=== PATIENT | female | born 1980 | race Caucasian/White ===

== ENCOUNTER 2018-06-28 16:42 | Inpatient (IN) ==
[2018-06-28] MEDS ORDERED: Sod Chloride 0.9% Inj 1,000 ML IV.SIG ONE (17:06)
--- NOTE | 2018-06-28 17:12 | ED ---
HPI General Chief complaint: Syncope Stated complaint: Passing out Time Seen by Provider: 06/28/18 17:06 History of Present Illness HPI narrative: This is a 37-year-old female with history of migraines, seizures , presents with her by private vehicle for evaluation of syncope versus seizure events. The patient was in the waiting room at a physician's office yesterday when she passed out. This was witnessed by the . There was no obvious seizure activity. She was not postictal. The reports that this happened 3 additional times since then. The patient was brought by ambulance to [facility] in [place] where she was reportedly admitted overnight and discharged today. The patient was discharged 1 hour prior to arrival here. She reports that they had no specific diagnosis for her and she continues to have the symptoms and thus she presents here with her for further evaluation. The patient does have a history of grand mal seizures approximately once per year. reports that these syncopal episodes are different as she is not postictal and she has no tonic-clonic activity. The patient has been taking her Topamax and Keppra as prescribed. During review of systems the patient does endorse a headache which is consistent with her typical migraines, frontal. She is denying any chest pain, shortness of breath , nausea, vomiting, abdominal pain, dysuria. She denies recent illness or recent medication changes. Her neurologist is Dr. Kyle Lopez. She has no other complaints at this time. Related Data Home Medications Medication Instructions Recorded Confirmed lithium carbonate 300 mg PO TID 06/28/18 06/28/18 topiramate [Topamax] 200 mg PO BID 06/28/18 06/28/18 Allergies Allergy/AdvReac Type Severity Reaction Status Date / Time No Known Allergies Allergy Uncoded 06/25/14 00:26 Review of Systems ROS: all other systems reviewed are negative PMFSH Medical History Medical History Bipolar 1 disorder (Acute) Epilepsy (Acute) Fibromyalgia (Acute) Hypotension (Acute) Hypothyroid (Acute) Seizure (Acute) Social History Social History Substance History: No History of Abuse Smoking Status: Never smoker How Often Do You Have a Drink Containing Alcohol: Never Recent Travel in [place] within the Last 8 Weeks: No Recent Out of Country Travel within the Last 8 Weeks: No Exam Narrative Exam Narrative: GENERAL: Well-developed well-nourished female in no acute distress SKIN: Warm and dry. HEAD: Atraumatic. Normocephalic. EYES: Pupils equal and round. No scleral icterus. No injection or drainage. ENT: No nasal bleeding or discharge. Mucous membranes pink and moist. NECK: Trachea midline. No JVD. CARDIOVASCULAR: Regular rate and rhythm. No murmur appreciated. RESPIRATORY: No accessory muscle use. Clear to auscultation. Breath sounds equal bilaterally. GASTROINTESTINAL: Abdomen soft, non-tender, nondistended. Hepatic and splenic margins not palpable. MUSCULOSKELETAL: No obvious deformities. No clubbing. No cyanosis. No edema. NEUROLOGICAL: Awake and alert. No obvious cranial nerve deficits. Motor grossly within normal limits. Normal speech. PSYCHIATRIC: Appropriate mood and affect; insight and judgment normal. Course Initial Documented Vital Signs Temperature 98.4 F 06/28/18 16:44 Pulse Rate 92 H 06/28/18 16:44 Respiratory Rate 20 06/28/18 16:44 Blood Pressure 131/59 L 06/28/18 16:44 Pulse Oximetry 98 06/28/18 16:44 Last Documented Vital Signs Temperature 98 F 06/28/18 19:29 Pulse Rate 97 H 06/28/18 19:29 Respiratory Rate 18 06/28/18 19:29 Blood Pressure 118/73 06/28/18 19:29 Pulse Oximetry 99 06/28/18 19:29 Medical Decision Making MDM Narrative Medical decision making narrative: We will attempt to obtain records [facility] the [facility] The patient was placed on ECG monitoring pulse oximetry. A 12 EKG was obtained. Lab work, chest x-ray ordered. Orthostatic vital signs will be obtained. 1835: The nurse has informed me that the patient was on the bedside commode when she reportedly got dizzy and fell off of the bedside commode. She is now complaining of an occipital headache. A CT of the brain has been ordered. Still awaiting records from [facility]. The patient's lab work is been reviewed. Her GFR is 36, normal BUN. Her lab work is otherwise unremarkable. Her CT of the brain reveals no acute abnormality. The patient was ambulated down the hallway however she can only take a few steps without assistance and then apparently became dizzy and lightheaded and almost fell again. Therefore the patient will be admitted for observation. Still awaiting records from [facility]. Medical Screen Exam Complete: Yes Emergency Medical Condition: Yes Differential Diagnosis Differential Diagnosis: Arrhythmia, seizure, electrolyte abnormality, hypoglycemia, dehydration, orthostatic hypotension Lab Data Result diagrams: 06/28/18 17:47 06/28/18 17:47 POC Results POC Urine Results Negative Lab Results 06/28/18 06/28/18 06/28/18 Range/Units 17:35 17:47 17:47 WBC 7.2 (4.0-11.0) th/mm3 RBC 4.24 (4.00-5.30) mil/mm3 Hgb 13.9 (11.6-15.3) gm/dL Hct 41.3 (35.0-46.0) % MCV 97.4 (80.0-100.0) fL MCH 32.8 (27.0-34.0) pg MCHC 33.7 (32.0-36.0) % RDW 14.8 (11.6-17.2) % Plt Count 198 (150-450) th/mm3 MPV 8.5 (7.0-11.0) fL Neut % (Auto) 67.2 (16.0-70.0) % Lymph % (Auto) 19.2 (9.0-44.0) % Brooks % (Auto) 9.6 H (0.0-8.0) % Eos % (Auto) 3.5 (0.0-4.0) % Baso % (Auto) 0.5 (0.0-2.0) % Neut # (Auto) 4.9 (1.8-7.7) th/mm3 Lymph # (Auto) 1.4 (1.0-4.8) th/mm3 Brooks # (Auto) 0.7 (0.0-0.9) th/mm3 Eos # (Auto) 0.3 (0.0-0.4) th/mm3 Baso # (Auto) 0.0 (0.0-0.2) th/mm3 WBC Differential . Differential Comment Auto diff final PT 9.2 L (9.8-11.6) sec INR 0.9 Ratio APTT 26.2 (23.4-31.7) sec Sodium (136-145) meq/L Potassium (3.5-5.1) meq/L Chloride (98-107) meq/L Carbon Dioxide (21.0-32.0) meq/L Anion Gap (5-15) meq/L BUN (7-18) mg/dL Creatinine (0.50-1.00) mg/dL Estimated GFR (>89) mL/min Random Glucose (74-106) mg/dL Calcium (8.5-10.1) mg/dL Magnesium (1.5-2.5) mg/dL Total Creatine Kinase (26-192) U/L Troponin I (0.02-0.05) ng/mL Urine Color Straw (Yellw/Straw) Urine Clarity Clear (Clear) Urine pH 8.0 (5.0-8.5) Ur Specific [place] 1.004 (1.002-1.035) Urine Protein Negative (Neg-Trace) mg/dL Urine Glucose (UA) Negative (Negative) mg/dL Urine Ketones Negative (Negative) mg/dL Urine Occult Blood Small H (Negative) Urine Nitrate Negative (Negative) Urine Bilirubin Negative (Negative) Urine Urobilinogen Less than 2 (Less than 2) mg/dL Ur Leukocyte Esterase Negative (Negative) Urine RBC Less than 1 (0-3) /hpf Urine WBC 2 (0-5) /hpf Ur Squamous Epith Cells 3 (0-5) /hpf Urine Bacteria Rare H (None) /hpf Micro UA Comment Culture not ind Ur Microscopic Review Not Reportable Urine Culture Comments Culture not ind [place] (0.5-1.5) meq/L 06/28/18 06/28/18 06/28/18 Range/Units 17:47 17:47 17:47 WBC (4.0-11.0) th/mm3 RBC (4.00-5.30) mil/mm3 Hgb (11.6-15.3) gm/dL Hct (35.0-46.0) % MCV (80.0-100.0) fL MCH (27.0-34.0) pg MCHC (32.0-36.0) % RDW (11.6-17.2) % Plt Count (150-450) th/mm3 MPV (7.0-11.0) fL Neut % (Auto) (16.0-70.0) % Lymph % (Auto) (9.0-44.0) % Brooks % (Auto) (0.0-8.0) % Eos % (Auto) (0.0-4.0) % Baso % (Auto) (0.0-2.0) % Neut # (Auto) (1.8-7.7) th/mm3 Lymph # (Auto) (1.0-4.8) th/mm3 Brooks # (Auto) (0.0-0.9) th/mm3 Eos # (Auto) (0.0-0.4) th/mm3 Baso # (Auto) (0.0-0.2) th/mm3 WBC Differential Differential Comment PT (9.8-11.6) sec INR Ratio APTT (23.4-31.7) sec Sodium 144 (136-145) meq/L Potassium 4.7 (3.5-5.1) meq/L Chloride 114 H (98-107) meq/L Carbon Dioxide 24.4 (21.0-32.0) meq/L Anion Gap 6 (5-15) meq/L BUN 17 (7-18) mg/dL Creatinine 1.60 H (0.50-1.00) mg/dL Estimated GFR 36 L (>89) mL/min Random Glucose 95 (74-106) mg/dL Calcium 8.9 (8.5-10.1) mg/dL Magnesium 2.1 (1.5-2.5) mg/dL Total Creatine Kinase 44 Cancelled (26-192) U/L Troponin I Less than 0.02 L (0.02-0.05) ng/mL Urine Color (Yellw/Straw) Urine Clarity (Clear) Urine pH (5.0-8.5) Ur Specific [place] (1.002-1.035) Urine Protein (Neg-Trace) mg/dL Urine Glucose (UA) (Negative) mg/dL Urine Ketones (Negative) mg/dL Urine Occult Blood (Negative) Urine Nitrate (Negative) Urine Bilirubin (Negative) Urine Urobilinogen (Less than 2) mg/dL Ur Leukocyte Esterase (Negative) Urine RBC (0-3) /hpf Urine WBC (0-5) /hpf Ur Squamous Epith Cells (0-5) /hpf Urine Bacteria (None) /hpf Micro UA Comment Ur Microscopic Review Urine Culture Comments [place] 0.8 (0.5-1.5) meq/L Imaging Data Radiologist's impression: Chest X-Ray 06/28/18 17:06 CONCLUSION: No acute cardiopulmonary disease demonstrated. Head CT 06/28/18 18:33 CONCLUSION: 1. No acute intracranial abnormality. 2. Arachnoid cyst versus kourtney cisterna magna. . . Discharge Plan Discharge Disposition Patient Disposition: ED Admit(ED Internal Use Only) Discharge Condition Condition: Stable Discharge Order Discharge Orders: ED Use Only Admit Order (Routine); Ordered 06/28/18 Ordered By: Vishnu Arevalo Discharge Details Diagnosis: Syncope Physicians Team ED Provider: Valorie Phoenix ED Midlevel Provider: Vishnu Arevalo Primary Care Provider: Caden Weldon Rxs /Orders / Referrals /Forms Prescriptions: No Action lithium carbonate 300 mg Tablet Extended Release 300 mg PO TID RF: 0 topiramate [Topamax] 200 mg Tablet 200 mg PO BID RF: 0 Status ED Status: With Doctor
--- NOTE | 2018-06-28 17:57 | XR ---
EXAM DATE: 06/28/2018 5:54 PM EST AGE/SEX: 37 years / Female INDICATIONS: Chest pain. CLINICAL DATA: This is the patient's initial encounter. Patient reports that signs and symptoms have been present for 1 day and indicates a pain score of 5/10. MEDICAL/SURGICAL HISTORY: None. None. COMPARISON: No prior exams available for comparison. FINDINGS: A single AP view of the chest demonstrates the lungs to be symmetrically aerated without evidence of mass, infiltrate or effusion. The cardiomediastinal contours are unremarkable. Osseous structures a re intact. CONCLUSION: No acute cardiopulmonary disease demonstrated. Electronically signed by: Magdiel Bland MD Board Certified Radiologist 06/28/2018 5:55 PM EST
[2018-06-28 18:18] LABS: Baso % (Auto) 0.5 % (0.0-2.0); Eos # (Auto) 0.3 th/mm3 (0.0-0.4); Eos % (Auto) 3.5 % (0.0-4.0); Hematocrit 41.3 % (35.0-46.0); Hemoglobin 13.9 gm/dL (11.6-15.3); Lymph # (Auto) 1.4 th/mm3 (1.0-4.8); Lymph % (Auto) 19.2 % (9.0-44.0); Mean Corpuscular HGB Conc 33.7 % (32.0-36.0); Mean Corpuscular Hemoglobin 32.8 pg (27.0-34.0); Mean Corpuscular Volume 97.4 fL (80.0-100.0); Mean Platelet Volume 8.5 fL (7.0-11.0); Mono # (Auto) 0.7 th/mm3 (0.0-0.9); Mono % (Auto) 9.6 % (0.0-8.0); Neut # (Auto) 4.9 th/mm3 (1.8-7.7); Neut % (Auto) 67.2 % (16.0-70.0); Platelet Count 198 th/mm3 (150-450); Red Blood Count 4.24 mil/mm3 (4.00-5.30); Red Cell Distribution Width 14.8 % (11.6-17.2); White Blood Count 7.2 th/mm3 (4.0-11.0)
[2018-06-28 18:35] LABS: Activated Partial Thrombo Time 26.2 sec (23.4-31.7); INR 0.9 Ratio; Prothrombin Time 9.2 sec (9.8-11.6)
[2018-06-28 18:36] LABS: Bacteria,Urine Rare /hpf; Bilirubin,Urine Negative (Negative); Clarity,Urine Clear (Clear); Color,Urine Straw (Yellw/Straw); Glucose,Urine (UA) Negative (Negative); Leukocyte Esterase,Urine Negative (Negative); Nitrite,Urine Negative (Negative); Specific Gravity,Urine 1.004 (1.002-1.035); Squamous Epithelial Cell,Urine 3 /hpf (0-5)
[2018-06-28 18:40] LABS: Anion Gap 6 meq/L (5-15); Blood Urea Nitrogen 17 mg/dL (7-18); Calcium 8.9 mg/dL (8.5-10.1); Carbon Dioxide 24.4 meq/L (21.0-32.0); Chloride 114 meq/L (98-107); Glomerular Filtration Rate 36 mL/min (>89); Glucose,Random 95 mg/dL (74-106); Magnesium 2.1 mg/dL (1.5-2.5); Potassium 4.7 meq/L (3.5-5.1); Sodium 144 meq/L (136-145)
[2018-06-28 18:51] LABS: Creatine Kinase 44 U/L (26-192)
--- NOTE | 2018-06-28 18:56 | CT ---
EXAM DATE: 06/28/2018 6:53 PM EST AGE/SEX: 37 years / Female INDICATIONS: Cephalgia. Multiple syncopal episodes. CLINICAL DATA: This is the patient's initial encounter. Patient reports that signs and symptoms have been present for 1 day and indicates a pain score of 7/10. MEDICAL/SURGICAL HISTORY: Hypertension. Seizures. Epilepsy. Fibromyalgia. None. RADIATION DOSE: 56.35 CTDI (mGy) COMPARISON: No prior exams available for comparison. TECHNIQUE: CT of the head without contrast. Using automated exposure control and adjustment of the mA and/or kV according to patient size, radiation dose was kept as low as reasonably achievable to ob tain optimal diagnostic quality images. DICOM format image data is available electronically for revi ew and comparison. FINDINGS: Cerebrum: The ventricles are normal for age. No evidence of midline shift, mass lesion, hemorrhage or acute infarction. No extraaxial fluid collections are seen. Posterior Fossa: The cerebellum and brainstem are intact. Prominent cystic space left posterior radha a. The 4th ventricle is midline. The cerebellopontine angle is unremarkable. Extracranial: The visualized portion of the orbits is intact. Skull: The calvaria is intact. No evidence of skull fracture. CONCLUSION: 1. No acute intracranial abnormality. 2. Arachnoid cyst versus kourtney cisterna magna. . . Electronically signed by: Noel Graham MD Board Certified Radiologist 06/28/2018 6:55 PM EST
[2018-06-28] MEDS ORDERED: Acetaminophen 325 MG Tablet PO ONE (19:03)
[2018-06-28] MEDS ORDERED: Bisacodyl 10 MG Supp RECTAL PRN (20:56)
[2018-06-28] MEDS ORDERED: Acetaminophen 325 MG Tablet PO PRN (20:56)
[2018-06-28] MEDS: Sod Chloride 0.9% Inj 1,000 ML IV.CONT SCH (21:00)
--- NOTE | 2018-06-28 21:05 | P.HPIM ---
History of Present Illness Primary Care Physician: Caden Weldon 37-year-old female with a past medical history significant for seizure disorder , fibromyalgia, bipolar disorder, chronic pain and migraines presents to the emergency department for the evaluation of "seizure-like episodes." The patient was discharged from [facility] earlier today where she was evaluated for several episodes of what she believes to be seizures. She states her symptoms started on Wednesday where she would have episodes of shaking for 2-3 minutes. She does not have memory of these episodes. She denies any associated bowel or bladder incontinence. Her witnessed the episodes and said that her body shook all over. She had approximately 4-5 more of these episodes in the last 2 days. She went to [facility] for further evaluation where she states an EEG was not done because they had done one a month ago. She states only blood work and a head CT was done. Records have been requested. The patient and her state that it was suggested that she come to [place] for further workup because they did not know what was wrong with her at [facility]. The patient sees a neurologist whose name she cannot remove reports that he increased her Keppra approximately 1 month ago. She denies any chest pain or shortness of. No abdominal pain. No nausea/ vomiting/diarrhea. No focal neurologic deficits. No fever/chills. Review of Systems Review of Systems: all other systems reviewed are negative [facility] Medical History Medical History Bipolar 1 disorder (Acute) Epilepsy (Acute) Fibromyalgia (Acute) Hypotension (Acute) Hypothyroid (Acute) Seizure (Acute) Surgical History Surgical History History of cholecystectomy (Acute) History of tonsillectomy (Acute) Family History Family History Other Diabetes mellitus Social History Social History Substance History: No History of Abuse Smoking Status: Never smoker How Often Do You Have a Drink Containing Alcohol: Never Recent Travel in [facility] within the Last 8 Weeks: No Recent Out of Country Travel within the Last 8 Weeks: No Immunization History Tetanus Immunization: Unsure Medications and Allergies Allergies Allergy/AdvReac Type Severity Reaction Status Date / Time No Known Allergies Allergy Uncoded 06/25/14 00:26 Home Medications Medication Instructions Recorded Confirmed Type lithium carbonate 300 mg PO TID 06/28/18 06/28/18 History topiramate [Topamax] 200 mg PO BID 06/28/18 06/28/18 History Active Medications: Active Medications Acetaminophen (Tylenol) 650 mg PO Q4H PRN PRN Reason: Temp > 100.4 Al Hydroxide/Mg Hydroxide (Milk Of Magnesia Liq) 30 ml PO Q12H PRN PRN Reason: Mild Constipation Bisacodyl (Dulcolax Supp) 10 mg RECTAL DAILY PRN PRN Reason: SEVERE CONSITIPATION Sodium Chloride (Ns Inj) 1,000 mls @ 100 mls/hr IV.CONT .Q10H GENIA Lactulose (Lactulose Liq) 30 ml PO DAILY PRN PRN Reason: SEVERE CONSITIPATION [place] Carbonate (Eskalith Sr) 300 mg PO TID GENIA Ondansetron HCl (Zofran Inj) 4 mg IV.PUSH Q6H PRN PRN Reason: NAUSEA OR VOMITING Senna/Docusate Sodium (Bertha-Colace) 1 tab PO BID [facility] Sennosides (Senokot) 17.2 mg PO Q12H PRN PRN Reason: Moderate Constipation Sodium Chloride (Ns Flush) 2 ml IV.FLUSH BID GENIA Sodium Chloride (Ns Flush) 2 ml IV.FLUSH PRN PRN PRN Reason: FLUSH AFTER USING IV ACCESS Topiramate (Topamax) 200 mg PO BID [facility] Physical Exam Vital signs: Vital Signs 06/28/18 16:44 06/28/18 17:06 06/28/18 19:29 Temperature 98.4 F 98.8 F 98 F Pulse Rate 92 H 91 H 97 H Respiratory Rate 20 16 18 Blood Pressure 131/59 L 109/72 118/73 Pulse Oximetry 98 98 99 Intake & Output 06/28/18 06/28/18 06/29/18 06:59 18:59 06:59 Intake Total 1000 / 1000 Balance 1000 / 1000 Weight 77.111 kg Intake: IV 1000 / 1000 NS Inj 1,000 ML @ Wide Open IV. 1000 / 1000 SIG BOLUS ONE Rx#:[id number] Narrative: Gen.: No acute distress Head: Normocephalic. Atraumatic. EENT: Pupils equal round and reactive to light. Nose without drainage. Airway intact. Throat without injection. Cardiovascular: Regular rate and rhythm. No murmurs, rubs or gallops. Respiratory: Lungs clear to auscultation bilaterally. No wheezes or rhonchi. Abdomen: Soft, nontender, nondistended. No peritoneal signs. Musculoskeletal: No gross deformities. No edema. Skin: No obvious rashes or erythema. Neuro: Sensory and motor grossly intact. Cranial nerves II through XII grossly intact. Results Labs CBC & Chem 7: 06/28/18 17:47 06/28/18 17:47 Imaging Impressions Chest X-Ray 06/28/18 17:06 CONCLUSION: No acute cardiopulmonary disease demonstrated. Head CT 06/28/18 18:33 CONCLUSION: 1. No acute intracranial abnormality. 2. Arachnoid cyst versus kourtney cisterna magna. . . Caprini VTE Risk Assessment Caprini VTE Risk Assessment: No/Low Risk (score <= 1) Caprini Risk Assessment Model: Point Value = 1 Point Value = 2 Point Value = 3 Point Value = 5 Age 41-60 Minor surgery BMI > 25 kg/m2 Swollen legs Varicose veins or History of unexplained or recurrent spontaneous Oral contraceptives or hormone replacement Sepsis (< 1 month) Serious lung disease, including pneumonia (< 1 month) Abnormal pulmonary function Acute myocardial infarction Congestive heart failure (< 1 month) History of inflammatory bowel disease Medical patient at bed rest Age 61-74 Arthroscopic surgery Major open surgery (> 45 min) Laparoscopic surgery (> 45 min) Malignancy Confined to bed (> 72 hours) Immobilizing plaster cast Central venous access Age >= 75 History of VTE Family history of VTE Factor V Leiden Prothrombin [id number] Lupus anticoagulant Anticardiolipin antibodies Elevated serum homocysteine Heparin-induced thrombocytopenia Other congenital or acquired thrombophilia Stroke (< 1 month) Elective arthroplasty Hip, pelvis, or leg fracture Acute spinal cord injury (< 1 month) Prophylaxis Regimen: Total Risk Factor Score Risk Level Prophylaxis Regimen 0-1 Low Early ambulation 2 Moderate Order ONE of the following: *Sequential Compression Device (SCD) *Heparin 5000 units SQ BID 3-4 Higher Order ONE of the following medications: *Heparin 5000 units SQ TID *Enoxaparin/Lovenox 40 mg SQ daily (WT < 150 kg, CrCl > 30 mL/min) *Enoxaparin/Lovenox 30 mg SQ daily (WT < 150 kg, CrCl > 10-29 mL/min) *Enoxaparin/Lovenox 30 mg SQ BID (WT < 150 kg, CrCl > 30 mL/min) AND/OR *Sequential Compression Device (SCD) 5 or more Highest Order ONE of the following medications: *Heparin 5000 units SQ TID (Preferred with Epidurals) *Enoxaparin/Lovenox 40 mg SQ daily (WT < 150 kg, CrCl > 30 mL/min) *Enoxaparin/Lovenox 30 mg SQ daily (WT < 150 kg, CrCl > 10-29 mL/min) *Enoxaparin/Lovenox 30 mg SQ BID (WT < 150 kg, CrCl > 30 mL/min) AND *Sequential Compression Device (SCD) Assessment and Plan Plan Assessment/plan: 1. ? Breakthrough seizures Patient with known history of seizure disorder Reports increase in Keppra medication reconciliation Continue Topamax EEG pending Neurology consulted, appreciate assistance 2. Weakness Patient with witnessed weakness while attempting to ambulate to the bathroom in the emergency department prior to her discharge. There was some concern about malingering. Records from [facility] have been requested. 3. Bipolar disorder Continue lithium 4. LEWIS Creatinine 1.60, baseline unknown IV fluid hydration Monitor renal function FEN Heart healthy diet Electrolytes: Monitor and replete as needed NS at 100 cc/hour
[2018-06-29] MEDS ORDERED: Acetaminophen 325 MG Tablet PO PRN (00:03)
[2018-06-29] MEDS: Topiramate 200 MG Tablet PO SCH ×3 (00:24→20:55)
[2018-06-29] MEDS: Senna/Docusate Sodium 8.6/50 MG Tablet PO SCH ×3 (00:26→20:42)
[2018-06-29] MEDS: Sod Chloride 0.9% Inj 1,000 ML IV.CONT SCH ×3 (03:13→17:56)
[2018-06-29 07:35] LABS: Baso % (Auto) 0.5 % (0.0-2.0); Eos # (Auto) 0.2 th/mm3 (0.0-0.4); Eos % (Auto) 3.6 % (0.0-4.0); Hematocrit 36.7 % (35.0-46.0); Hemoglobin 12.3 gm/dL (11.6-15.3); Lymph # (Auto) 1.4 th/mm3 (1.0-4.8); Lymph % (Auto) 25.4 % (9.0-44.0); Mean Corpuscular HGB Conc 33.5 % (32.0-36.0); Mean Corpuscular Hemoglobin 32.6 pg (27.0-34.0); Mean Corpuscular Volume 97.4 fL (80.0-100.0); Mean Platelet Volume 8.7 fL (7.0-11.0); Mono # (Auto) 0.5 th/mm3 (0.0-0.9); Mono % (Auto) 8.9 % (0.0-8.0); Neut # (Auto) 3.3 th/mm3 (1.8-7.7); Neut % (Auto) 61.6 % (16.0-70.0); Platelet Count 179 th/mm3 (150-450); Red Blood Count 3.77 mil/mm3 (4.00-5.30); Red Cell Distribution Width 14.9 % (11.6-17.2); White Blood Count 5.3 th/mm3 (4.0-11.0)
[2018-06-29 07:59] LABS: Calcium 7.8 mg/dL (8.5-10.1); Carbon Dioxide 21.9 meq/L (21.0-32.0); Potassium 3.7 meq/L (3.5-5.1)
--- NOTE | 2018-06-29 11:06 | P.PNIM ---
Subjective Interval history: Follow-up for seizures, headache. The patient reports feeling slightly better today with no reported episodes this morning. She is requesting pain medication for some mild left shoulder pain. She has not yet attempted ambulation today. Denies any fevers or chills. Denies any chest pain , palpitations, shortness of breath. She reports intermittent headaches which are chronic for her. No new medical complaints reported at this time. Physical Exam Vital signs: Vital Signs 06/28/18 16:44 06/28/18 17:06 06/28/18 19:29 Temperature 98.4 F 98.8 F 98 F Pulse Rate 92 H 91 H 97 H Respiratory Rate 20 16 18 Blood Pressure 131/59 L 109/72 118/73 Pulse Oximetry 98 98 99 06/29/18 00:00 06/29/18 04:00 Temperature 98.8 F 98.4 F Pulse Rate 89 73 Respiratory Rate 20 20 Blood Pressure 107/55 L 99/57 L Pulse Oximetry 95 94 L Intake & Output 06/28/18 06/29/18 06/29/18 18:59 06:59 18:59 Intake Total 1000 / 1000 Balance 1000 / 1000 Weight 77.111 kg Intake: IV 1000 / 1000 NS Inj 1,000 ML @ Wide Open IV. 1000 / 1000 SIG BOLUS ONE Rx#:[id number] Other: # Voids 2 Narrative: GENERAL: Well-nourished, well-developed female patient in [facility]. SKIN: Warm and dry. No rash. HEENT: Pupils equal and round. Mucous membranes pink and moist. NECK: Supple. Trachea midline. CARDIOVASCULAR: Regular rate and rhythm. No murmur appreciated. RESPIRATORY: No accessory muscle use. Clear to auscultation. Breath sounds equal bilaterally. GASTROINTESTINAL: Abdomen soft, non-tender, nondistended. Normoactive bowel sounds x4. MUSCULOSKELETAL: No obvious deformities. Extremities without clubbing, cyanosis , or edema. NEUROLOGICAL: Awake and alert. No obvious cranial nerve deficits. Moving all extremities spontaneously. Normal speech. Results Labs CBC & Chem 7: 06/29/18 06:20 06/29/18 06:20 Imaging Imaging: Impressions Chest X-Ray 06/28/18 17:06 CONCLUSION: No acute cardiopulmonary disease demonstrated. Head CT 06/28/18 18:33 CONCLUSION: 1. No acute intracranial abnormality. 2. Arachnoid cyst versus kourtney cisterna magna. . . Assessment and Plan Plan 37-year-old female with a past medical history significant for seizure disorder , fibromyalgia, bipolar disorder, chronic pain and migraines presents to the emergency department for the evaluation of "seizure-like episodes." The patient was discharged from [facility] earlier today where she was evaluated for several episodes of what she believes to be seizures. 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 There was some concern about malingering. -Records from [facility] have been requested - although reportedly unremarkable per neuro -CPK wnl -check B12 and TSH -Consult PT Bipolar disorder: chronic -Continue patient's lithium -lithium level wnl LEWIS: suspect prerenal secondary to dehydration -Creatinine 1.60, baseline unknown -UA negative -Give IV fluid hydration -Avoid nephrotoxins -Monitor renal function, improving with Cr 1.37 today DVT Prophylaxis: teds/SCDs Attending Attestation patient was seen and examined. looks comfortable ; has some pain to the left shoulder. EEG done earlier. neurology consulted. d/w the RN.
[2018-06-29] MEDS ORDERED: Ibuprofen 600 MG Tablet PO PRN (11:39)
[2018-06-29] MEDS: Acetaminophen 325 MG Tablet PO PRN ×2 (12:26→20:45)
--- NOTE | 2018-06-29 14:04 | MB ---
cc: Yusuf Kiser MD, PhD DATE: 06/29/2018 REASON FOR CONSULTATION: Possible seizure, loss of consciousness. HISTORY OF PRESENT ILLNESS: This is a 37-year-old female who has a history of grand mal seizures and has these about once a year, history of migraine headaches. She relates for the past several days episodes of loss of consciousness. She states these are different from her seizures; they are usually when she is standing. She gets a headache, which is migraine-type headache and loses consciousness for only a couple of minutes. There is no tonic-clonic activity. No posturing. Then, when she awakens, is back to baseline. No bladder incontinence. No tongue biting, etc. She gets these on a daily basis; was at [facility] where workup was negative. She presented to the ER here. PAST MEDICAL HISTORY: She has a history of grand mal seizures. She takes Keppra and Topamax. There is history of migraine headaches, fibromyalgia, hypertension, hypothyroidism, bipolar disorder, cholecystectomy, tonsillectomy. HOME MEDICATIONS: She takes Topamax 200 mg b.i.d., lithium 300 mg t.i.d. She takes Keppra as well for seizures. NEUROLOGIC EXAMINATION: VITAL SIGNS: Her blood pressure is 99/57, pulse 73, respirations 20, temperature 98 degrees. HIGHER CORTICAL FUNCTION: She is alert, oriented. Speech is normal. There is no neglect. Cranial nerves 2-12 are normal. Motor exam is 5/5 strength of all groups. There is no drift. Fine motor skills normal. Reflexes are symmetric. IMAGING STUDIES: CT brain is normal. There is an arachnoid cyst versus kourtney cisterna magna. LABORATORY DATA: White count is 5300, hemoglobin 12.3, hematocrit 36%, platelet count 179,000. PT 9.2. INR 0.9, PTT 26.2. Sodium is 147, potassium 3.7, chloride 115, CO2 21.9, BUN is 15, creatinine 1.37, GFR is 43, glucose 95, calcium 7.3. Urinalysis: The pH is 8, specific gravity 1.004, occult blood is small. Killian level 0.8. IMPRESSION: Episodes which sound of mainly like syncope, not seizures. This could be basilar migraine versus syncope, rule out cardiogenic source. RECOMMENDATIONS: MRI and MRA of the brain. We will get an EEG, echocardiogram, carotid ultrasound, check orthostatic blood pressure and pulse. Consider some other type of migraine prophylactic therapy if the above workup is negative. She states she has been on a number of migraine prophylactic medicines without significant help including the SSRIs, Depakote and gabapentin. Yusuf Kiser MD, PhD KING/emmanuel , 01:38 PM , 01:45 PM
--- NOTE | 2018-06-29 16:04 | US ---
EXAM DATE: 06/29/2018 3:54 PM EST AGE/SEX: 37 years / Female INDICATIONS: Syncope. CLINICAL DATA: This is the patient's initial encounter. Patient reports that signs and symptoms have been present for 2 days and indicates a pain score of 0/10. MEDICAL/SURGICAL HISTORY: Hypothyroidism. Bipolar 1 disorder. Epilepsy. Hypotension. Fibromyalg ia. Grand mal seizures. Migraines. Cholecystectomy. Tonsillectomy. COMPARISON: No prior exams available for comparison. VELOCITY PARAMETERS: ICA/CCA Ratio: Right 0.8 , Left 0.8 ICA: Right 68 cm/sec, Left 86 cm/sec CCA: Right 88 cm/sec, Left 111 cm/sec ECA: Right 93 cm/sec, Left 92 cm/sec Vertebral: Right 40 cm/sec antegrade, Left 55 cm/sec antegrade FINDINGS: Right Carotid: No significant plaque is visualized.The waveforms are within normal limits. Left Carotid: No significant plaque is visualized. The waveforms are within normal limits. Other: None. CONCLUSION: 1. Right Internal Carotid Artery: No significant stenosis or atherosclerotic plaque is visualized. 2. Left Internal Carotid Artery: No significant stenosis or atherosclerotic plaque is visualized. Electronically signed by: Enrico Avila MD Board Certified Radiologist 06/29/2018 4:03 PM EST
[2018-06-29] MEDS ORDERED: Gadobutrol PF 7.5 MMOL/7.5 ML Vial (for RAD) IV.SIG ONE (16:45)
--- NOTE | 2018-06-29 16:47 | MR ---
EXAM DATE: 06/29/2018 4:43 PM EST AGE/SEX: 37 years / Female INDICATIONS: CVA. CLINICAL DATA: This is the patient's subsequent encounter. Patient reports that signs and symptoms h ave been present for 2 days and indicates a pain score of 0/10. MEDICAL/SURGICAL HISTORY: Seizures. Hypothyroidism. Cholecystectomy. Tonsillectomy. COMPARISON: [facility] [place], MR HEAD W & W/O CONTRAST, 06/29/2018. . TECHNIQUE: 3D [id number] MRA was performed. Source images, multiplanar STS MIP, and 3D volum e MIP reconstructions were reviewed. FINDINGS: Anterior Circulation: Intracranial Carotid Arteries: Patent. 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 There is no evidence for aneurysm, vessel truncation o r stenosis, and no evidence for vascular malformation. MCA: There is no evidence for aneurysm, vessel truncation or stenosis, and no evidence for vascular m alformation. Posterior Circulation: Distal Vertebral Arteries: Distal Vertebral arteries are symetrical and patent. Basilar Artery: There is no evidence for aneurysm, vessel truncation or stenosis, and no evidence for vascular malformation. SUPERVISING AIRPLANE PILOT and Cerebellar Branches: origin of the right SUPERVISING AIRPLANE PILOT. There is no evidence for aneurysm, vessel truncation or stenosis, and no evidence for vascular malformation. CONCLUSION: 1. Probable atrial region of the right A1 segment. 2. Otherwise, negative MRA Cow ([place]) non contrast. Electronically signed by: Rajinedr Espinal MD Board Certified Radiologist 06/29/2018 4:45 PM EST
--- NOTE | 2018-06-29 16:50 | MR ---
EXAM DATE: 06/29/2018 4:43 PM EST AGE/SEX: 37 years / Female INDICATIONS: Cephalgia. CVA. CLINICAL DATA: This is the patient's subsequent encounter. Patient reports that signs and symptoms h ave been present for 2 days and indicates a pain score of 3/10. MEDICAL/SURGICAL HISTORY: Seizures. Hypothyroidism. Cholecystectomy. Tonsillectomy. COMPARISON: [facility], MRA HEAD W/O CONTRAST, 06/29/2018. . TECHNIQUE: Multiplanar, multisequence examination of the brain was performed without and with 7.5 ml Gadavist (gadobutrol) contrast as a single exam dose. FINDINGS: Cerebrum: The ventricles are normal for age. No evidence of midline shift, mass lesion, hemorrhage or acute infarction. No extraaxial fluid collections are seen. The pituitary gland and suprasellar cistern are normal in configuration. White Matter: No significant signal abnormalities are seen in the white matter. Posterior Fossa: Probable cisterna magna versus arachnoid cyst in the left posterior fossa. The cereb ellum and brainstem are intact. The 4th ventricle is midline. The cerebellopontine angle is unremar kable. The cerebellar tonsils are normal in position. Diffusion Imaging: No focal areas of restricted diffusion are seen. No evidence of acute infarction . Extracranial: The visualized portions of the orbits and paranasal sinuses are unremarkable. Post Contrast: No abnormal areas of parenchymal or dural enhancement. No evidence of blood-brain ba rrier breakdown. CONCLUSION: 1. No acute abnormality. 2. Arachnoid cyst versus kourtney cisterna magna. 3. Specifically, no evidence for acute infarction, hemorrhage or mass. Electronically signed by: Rajinder Espinal MD Board Certified Radiologist 06/29/2018 4:49 PM EST
[2018-06-29 19:29] LABS: Thyroid Stimulating Hormone 1.1 uIU/mL (0.358-3.740)
--- NOTE | 2018-06-29 20:12 | ECHRPT ---
Indication: SYNCOPE CONCLUSIONS Normal left ventricular size. Wall thickness is normal. Preserved LV systolic function (EF 60%). The estimated pulmonary arterial pressure is 28 mmHg. There is trace mitral and tricuspid valve regurgitation. BP: / HR: Rhythm: MEASUREMENTS (Male / Female) Normal Values Technical Quality: 2D ECHO LV Diastolic Diameter PLAX 4.6 cm 4.2 - 5.9 / 3.9 - 5.3 cm LV Systolic Diameter PLAX 3.2 cm IVS Diastolic Thickness 0.9 cm 0.6 - 1.0 / 0.6 - 0.9 cm LVPW Diastolic Thickness 0.7 cm 0.6 - 1.0 / 0.6 - 0.9 cm LV Relative Wall Thickness 0.3 RV Internal Dim ED PLAX 1.8 cm LVOT Diameter 1.8 cm Aortic Root Diameter 2.2 cm LA Systolic Diameter LX 2.9 cm 3.0 - 4.0 / 2.7 - 3.8 cm DOPPLER AV Peak Velocity 106.0 cm/s AV Peak Gradient 4.5 mmHg LVOT Peak Velocity 45.9 cm/s LVOT Peak Gradient 0.8 mmHg AV Area Cont Eq pk 1.1 cm Mitral E Point Velocity 90.3 cm/s Mitral A Point Velocity 92.3 cm/s Mitral E to A Ratio 1.0 LV E' Lateral Velocity 10.3 cm/s Mitral E to LV E' Lateral Ratio 8.8 LV E' Septal Velocity 9.3 cm/s Mitral E to LV E' Septal Ratio 9.8 TR Peak Velocity 212.0 cm/s TR Peak Gradient 18.0 mmHg Right Atrial Pressure 10.0 mmHg Pulmonary Artery Systolic Pressu 28.0 mmHg Right Ventricular Systolic Press 28.0 mmHg PV Peak Velocity 121.0 cm/s PV Peak Gradient 5.9 mmHg FINDINGS LEFT VENTRICLE Normal left ventricular size. Wall thickness is normal. The left ventricular systolic function is normal with an estimated ejection fraction of 60%. RIGHT VENTRICLE Normal right ventricular size and systolic function. LEFT ATRIUM The left atrial size is normal. RIGHT ATRIUM The right atrial size is normal. ATRIAL SEPTUM Normal atrial septal thickness without atrial level shunting by limited color doppler interrogation. AORTA The aortic root and proximal ascending aorta are normal in size on limited imaging. MITRAL VALVE Structurally normal mitral valve. Trace mitral valve regurgitation. AORTIC VALVE Trileaflet aortic valve. No aortic valve stenosis or regurgitation. TRICUSPID VALVE The estimated pulmonary arterial pressure is 28 mmHg. There is trace tricuspid valve regurgitation. PULMONARY VALVE No pulmonary valve regurgitation or stenosis. VESSELS The inferior vena cava is normal in size. PERICARDIUM No pericardial effusion. Issac Salazar MD, FACC (Electronically Signed) Final Date:29 June 2018 20:11
--- NOTE | 2018-06-29 21:59 | MG ---
cc: Yusuf Kiser MD, PhD TEST NUMBER: [id number] TECHNIQUE: A 17-channel EEG. DESCRIPTION: The background rhythm is symmetrical alpha activity frequency 8 Hz, amplitude 20 microvolts. No lateralizing features are identified. There is some slowing in the theta range during drowsiness. No epileptiform features were seen. The patient does fall asleep in his sleep architecture in terms of sleep spindles. INTERPRETATION: Normal electroencephalogram. Yusuf Kiser MD, PhD KING/endy , 09:20 PM , 09:23 PM
[2018-06-30 01:52] VITALS: RESP 18; TEMP 98
[2018-06-30] MEDS: Sod Chloride 0.9% Inj 1,000 ML IV.CONT SCH ×2 (02:01→15:04)
--- NOTE | 2018-06-30 06:35 | ECG ---
Date Performed: 06/28/2018 Time Performed: 17:18:42 PTAGE: 37 years EKG: Sinus rhythm NONSPECIFIC T-WAVE ABNORMALITY BORDERLINE ECG NO PREVIOUS TRACING DOCTOR: Eusebio Katz Interpretating Date/Time 06/30/2018 06:34:42
[2018-06-30] MEDS: Senna/Docusate Sodium 8.6/50 MG Tablet PO SCH (09:17)
[2018-06-30] MEDS: Topiramate 200 MG Tablet PO SCH (09:17)
--- NOTE | 2018-06-30 10:30 | P.PNIM ---
Subjective Interval history: Follow-up for migraine, syncope versus seizure episodes. Patient reports continued constant frontotemporal headache, associated with mild photophobia and occasional nausea. Denies any dizziness. She is tolerating oral intake. She ambulated with physical therapy today. No new medical complaints reported. Physical Exam Vital signs: Vital Signs 06/29/18 11:52 06/29/18 16:00 06/29/18 20:00 Temperature 98.2 F 98.5 F 98.1 F Pulse Rate 76 70 76 Respiratory Rate 16 16 18 Blood Pressure 105/62 100/61 115/56 L Pulse Oximetry 98 100 100 06/29/18 20:50 06/29/18 21:05 06/29/18 21:20 Temperature Pulse Rate 77 Respiratory Rate 18 16 Blood Pressure Pulse Oximetry 06/30/18 00:45 06/30/18 08:00 Temperature 98.0 F 98.0 F Pulse Rate 70 68 Respiratory Rate 18 18 Blood Pressure 102/55 L 99/54 L Pulse Oximetry 96 98 Intake & Output 06/29/18 06/30/18 06/30/18 18:59 06:59 18:59 Intake Total 1999 1360 / 1360 Balance 1999 1360 / 1360 Intake: IV 1999 1000 / 1000 NS Inj 1,000 ML @ 100 mls/hr IV 1999 1000 / 1000 .CONT .Q10H [facility] Rx#:[id number] Oral 360 / 360 Other: # Voids 3 3 Date of Last Bowel Movement 06/30/18 # Bowel Movements 2 1 Narrative: GENERAL: Well-nourished, well-developed female patient in [facility]. SKIN: Warm and dry. No rash. HEENT: Pupils equal and round. Mucous membranes pink and moist. NECK: Supple. Trachea midline. CARDIOVASCULAR: Regular rate and rhythm. No murmur appreciated. RESPIRATORY: No accessory muscle use. Clear to auscultation. Breath sounds equal bilaterally. GASTROINTESTINAL: Abdomen soft, non-tender, nondistended. Normoactive bowel sounds x4. MUSCULOSKELETAL: No obvious deformities. Extremities without clubbing, cyanosis , or edema. NEUROLOGICAL: Awake and alert. No obvious cranial nerve deficits. Moving all extremities spontaneously. Normal speech. Results Labs CBC & Chem 7: 06/30/18 11:50 06/30/18 11:50 Imaging Imaging: Impressions Carotid Doppler Study 06/29/18 00:00 CONCLUSION: 1. Right Internal Carotid Artery: No significant stenosis or atherosclerotic plaque is visualized. 2. Left Internal Carotid Artery: No significant stenosis or atherosclerotic plaque is visualized. Head MRI 06/29/18 00:00 CONCLUSION: 1. No acute abnormality. 2. Arachnoid cyst versus kourtney cisterna magna. 3. Specifically, no evidence for acute infarction, hemorrhage or mass. Head MRA 06/29/18 00:00 CONCLUSION: 1. Probable atrial region of the right A1 segment. 2. Otherwise, negative MRA Cow ([place]) non contrast. Assessment and Plan Plan 37-year-old female with a past medical history significant for seizure disorder , fibromyalgia, bipolar disorder, chronic pain and migraines presents to the emergency department for the evaluation of "seizure-like episodes." The patient was discharged from [facility] earlier today where she was evaluated for several episodes of what she believes to be seizures. Possible breakthrough seizures: patient with known history of seizure disorder -Head CT reviewed, no acute findings, shows arachnoid cyst vs kourtney cisterna magna -Brain MRI again shows no acute findings, with arachnoid cyst vs kourtney cisterna magna -Head MRA shows probable atresia of right A1 segment, otherwise unremarkable -Carotid U/S unremarkable -Continue patient's Topamax -Seizure precautions, neuro checks, monitor on telemetry -EEG unremarkable -Obtain records from - reportedly unremarkable work up per neurology -Neurology consulted, appreciate assistance, recommended midodrine for likely orthostatic hypotension, cleared for discharge Generalized Weakness: patient with witnessed weakness while attempting to ambulate to the bathroom in the emergency department prior to her discharge. There was some concern about malingering. -Records from [facility] have been requested - although reportedly unremarkable per neuro -CPK wnl -B12 and TSH wnl -Evaluated by PT, no physical therapy needed at discharge Bipolar disorder: chronic -Continue patient's lithium -lithium level wnl LEWIS: suspect prerenal secondary to dehydration -Creatinine 1.60, baseline unknown -UA negative -Give IV fluid hydration -Avoid nephrotoxins -Monitor renal function, improving with Cr 1.03, resolved DVT Prophylaxis: teds/SCDs Discharge Planning: Patient was cleared for discharge by neurology, recommended midodrine, outpatient follow-up with her neurologist. Discharge patient to home Condition on discharge: Stable Regular Diet as tolerated Ad Shaista activity Rx written: Midodrine Follow-up with primary care physician and neurology
--- NOTE | 2018-06-30 12:10 | P.PNNEU ---
Subjective Subjective Comments: pt reports brief light headedness after got up suddenly. 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 table and midodrine was helpful Active Medications: Active Medications Acetaminophen (Tylenol) 650 mg PO Q4H PRN PRN Reason: headache/fever/pain1-4 Last Admin: 06/29/18 20:45 Dose: 650 mg Al Hydroxide/Mg Hydroxide (Milk Of [place] Liq) 30 ml PO Q12H PRN PRN Reason: Mild Constipation Bisacodyl (Dulcolax Supp) 10 mg RECTAL DAILY PRN PRN Reason: SEVERE CONSITIPATION Sodium Chloride (Ns Inj) 1,000 mls @ 100 mls/hr IV.CONT .Q10H [facility] Last Infusion: 06/30/18 07:00 Dose: 0 mls/hr Ibuprofen (Motrin) 600 mg PO Q6H PRN PRN Reason: pain scale 5 to 10 Last Admin: 06/29/18 20:44 Dose: 600 mg Lactulose (Lactulose Liq) 30 ml PO DAILY PRN PRN Reason: SEVERE CONSITIPATION [place] Carbonate (Eskalith Sr) 300 mg PO TID [facility] Last Admin: 06/30/18 09:17 Dose: 300 mg Ondansetron HCl (Zofran Inj) 4 mg IV.PUSH Q6H PRN PRN Reason: NAUSEA OR VOMITING Senna/Docusate Sodium (Bertha-Colace) 1 tab PO BID [facility] Last Admin: 06/30/18 09:17 Dose: Not Given Sennosides (Senokot) 17.2 mg PO Q12H PRN PRN Reason: Moderate Constipation Sodium Chloride (Ns Flush) 2 ml IV.FLUSH BID [facility] Last Admin: 06/30/18 09:17 Dose: Not Given Sodium Chloride (Ns Flush) 2 ml IV.FLUSH PRN PRN PRN Reason: FLUSH AFTER USING IV ACCESS Topiramate (Topamax) 200 mg PO BID [facility] Last Admin: 06/30/18 09:17 Dose: 200 mg Allergies/Adverse Reactions: Allergies Allergy/AdvReac Type Severity Reaction Status Date / Time No Known Allergies Allergy Uncoded 06/25/14 00:26 Physical Exam Vital signs: Vital Signs 06/29/18 16:00 06/29/18 20:00 06/29/18 20:50 Temperature 98.5 F 98.1 F Pulse Rate 70 76 Respiratory Rate 16 18 18 Blood Pressure 100/61 115/56 L Pulse Oximetry 100 100 06/29/18 21:05 06/29/18 21:20 06/30/18 00:45 Temperature 98.0 F Pulse Rate 77 70 Respiratory Rate 16 18 Blood Pressure 102/55 L Pulse Oximetry 96 06/30/18 08:00 06/30/18 11:19 06/30/18 11:20 Temperature 98.0 F Pulse Rate 68 66 79 Respiratory Rate 18 Blood Pressure 99/54 L Pulse Oximetry 98 06/30/18 11:21 Temperature Pulse Rate Respiratory Rate 18 Blood Pressure Pulse Oximetry Intake & Output 06/29/18 06/30/18 06/30/18 18:59 06:59 18:59 Intake Total 1999 1360 / 1360 Balance 1999 1360 / 1360 Intake: IV 1999 1000 / 1000 NS Inj 1,000 ML @ 100 mls/hr IV 1999 1000 / 1000 .CONT .Q10H [facility] Rx#:[id number] Oral 360 / 360 Other: # Voids 3 3 Date of Last Bowel Movement 06/30/18 # Bowel Movements 2 1 - Routine Neurological Exam alert, speech normal CN intact MOTOR--5/5 BUE and BLE Objective Radiology Results: mri brain and mra brain normal carotid us normal Laboratory Results - last 24 hr 06/29/18 06:20 Vitamin B12 1277 H TSH 1.100 Review/Management - Review/Management Plan: probable orthostatic hypotension. Doubt migraine or sz recommend --midodrine 5 mg daily Ok from neuro standpoint to id home and follow up with her neurologist in [place].
[2018-06-30 12:16] LABS: Baso % (Auto) 0.6 % (0.0-2.0); Eos # (Auto) 0.2 th/mm3 (0.0-0.4); Eos % (Auto) 4.4 % (0.0-4.0); Hematocrit 35.6 % (35.0-46.0); Lymph # (Auto) 1.3 th/mm3 (1.0-4.8); Lymph % (Auto) 25.7 % (9.0-44.0); Mean Corpuscular HGB Conc 33.7 % (32.0-36.0); Mean Corpuscular Hemoglobin 32.9 pg (27.0-34.0); Mean Corpuscular Volume 97.6 fL (80.0-100.0); Mean Platelet Volume 8.3 fL (7.0-11.0); Mono # (Auto) 0.4 th/mm3 (0.0-0.9); Mono % (Auto) 7.4 % (0.0-8.0); Neut # (Auto) 3.1 th/mm3 (1.8-7.7); Neut % (Auto) 61.9 % (16.0-70.0); Platelet Count 179 th/mm3 (150-450); Red Blood Count 3.64 mil/mm3 (4.00-5.30); Red Cell Distribution Width 14.6 % (11.6-17.2); White Blood Count 5.1 th/mm3 (4.0-11.0)
[2018-06-30 12:35] LABS: Calcium 8.1 mg/dL (8.5-10.1); Carbon Dioxide 23.1 meq/L (21.0-32.0); Potassium 3.7 meq/L (3.5-5.1)
[2018-06-30] MEDS ORDERED: Carboxymethylcellulose 0.5% Opth Drops 15 ML Bottle EACH EYE PRN (12:42)
[2018-06-30 15:18] VITALS: BP 100/58; PULSE 91; O2SAT 97
== END 2018-06-30 18:05 | disposition home or self-care (01) | DRG 312 ==
LOC: NEPE 16:42 → NEDA 16:42 → NEPHCDU 21:25
PROVIDERS: ADMIT Internal Medicine; ATTEND Internal Medicine
CPT/HCPCS: 70450; 70544; 70553; 71010; 71045; 80048; 80178; 81001; 82550; 82607; 83735; 84443; 84484; 84703; 85025; 85610; 85730; 90760; 93005; 93306; 93880; 95819; 96360; 97162; 99285; A9585; G0378; J7030